=== PATIENT | female | born 1980 | race Asian ===

== ENCOUNTER 2017-06-15 08:14 | Emergency (ER) | payer MEDICAID ==
[~2017-06-15] VITALS: Ht 175.3 cm; Wt 111.4 kg
[2017-06-15] MEDS ORDERED: FERR325T6 PO (08:56)
[2017-06-15] MEDS ORDERED: ACETAMINOPHEN 500MG TABLET PO ONE (09:45)
[2017-06-15 12:57] VITALS: BP 110/67
== END 2017-06-15 12:59 | disposition home or self-care (01) ==
LOC: ER 08:28
DX: J06.9 Acute upper respiratory infection, unspecified (principal)
CPT/HCPCS: 87804; 99284

== ENCOUNTER 2019-02-07 16:25 | Emergency (ER) | payer SELFPAY ==
[~2019-02-07] VITALS: Ht 175.3 cm; Wt 100.0 kg
[~2019-02-07 16:25] MED LIST: FERR325T6 PO
[2019-02-07 17:28] VITALS: BP 116/65
== END 2019-02-07 18:21 | disposition home or self-care (01) ==
LOC: ER 16:25
DX: J40 Bronchitis, not specified as acute or chronic (principal); D64.9 Anemia, unspecified
CPT/HCPCS: 81025; 99283

== ENCOUNTER 2019-06-05 21:55 | Inpatient (IN) | payer MEDICAID ==
[~2019-06-05] VITALS: Ht 175.3 cm; Wt 115.2 kg
[2019-06-05] MEDS ORDERED: SODIUM CHLORIDE 0.9% 1,000 ML IV ONE (22:46)
[2019-06-05 23:02] LABS: BASOPHILS % 0.5 % (0.0-2.0); EOSINOPHILS % 3.3 % (0.0-5.0); LYMPHOCYTES % 29.2 % (20.0-50.0); MEAN CORPUSCULAR HEMOGLOBIN 15.8 pg (28.0-32.0); MEAN CORPUSCULAR VOLUME 57.5 fL (81.0-99.0); MEAN PLATELET VOLUME 8.3 fl (7.4-10.4); PLATELET 383 x1000/uL (130-400); RED BLOOD CELL COUNT 3.51 mill/uL (4.2-5.4); RED CELL DISTRIBUTION WIDTH 21.9 % (11.6-14.6)
[2019-06-05 23:08] LABS: HEMATOCRIT. 20.2 % (36.0-48.0); HEMOGLOBIN. 5.6 g/dL (12.0-16.0); PROTHROMBIN TIME 10.8 sec (9.6-11.0)
[2019-06-05 23:09] LABS: CHLORIDE 109 mEq/L (98-107)
[2019-06-05 23:16] LABS: HCG SCREEN NEGATIVE
[2019-06-05 23:18] LABS: PLATELET ESTIMATE NORMAL
[2019-06-06] MEDS: SODIUM CHLORIDE 0.9% 1,000 ML IV SCH ×3 (01:57→23:05)
[2019-06-06] MEDS ORDERED: ACETAMINOPHEN 325MG TABLET PO PRN (02:00)
[2019-06-06] MEDS ORDERED: ONDANSETRON HCL 4MG/2ML INJ IV PRN (02:00)
[2019-06-06 05:27] LABS: MEAN CORPUSCULAR VOLUME 58.9 fL (81.0-99.0); PLATELET 343 x1000/uL (130-400); RED BLOOD CELL COUNT 3.53 mill/uL (4.2-5.4); RED CELL DISTRIBUTION WIDTH 21.8 % (11.6-14.6)
[2019-06-06 05:35] LABS: CHLORIDE 111 mEq/L (98-107)
[2019-06-06 05:37] LABS: HEMATOCRIT 20.8 % (36.0-48.0)
[2019-06-06 09:49] LABS: BASOPHILS % 0.7 % (0.0-2.0); EOSINOPHILS % 3.8 % (0.0-5.0); HEMATOCRIT. 25.7 % (36.0-48.0); HEMOGLOBIN. 7.5 g/dL (12.0-16.0); LYMPHOCYTES % 24.3 % (20.0-50.0); MEAN CORPUSCULAR HEMOGLOBIN 18.2 pg (28.0-32.0); MEAN CORPUSCULAR VOLUME 62.3 fL (81.0-99.0); MEAN PLATELET VOLUME 8.4 fl (7.4-10.4); MONOCYTES % 7.5 % (2.0-8.0); NEUTROPHILS % 63.7 % (40.0-76.0); PLATELET 348 x1000/uL (130-400); RED BLOOD CELL COUNT 4.13 mill/uL (4.2-5.4); RED CELL DISTRIBUTION WIDTH 24.4 % (11.6-14.6)
[2019-06-06 09:58] LABS: PROTHROMBIN TIME 10.8 sec (9.6-11.0)
[2019-06-06] MEDS ORDERED: FERROUS SULFATE 325MG TABLET PO NR (10:30)
[2019-06-06] MEDS: FERROUS SULFATE 325MG TABLET PO SCH ×2 (14:30→18:19)
[2019-06-06 16:45] VITALS: BP 107/58
[2019-06-06 19:14] LABS: HEMATOCRIT 24.6 % (36.0-48.0); HEMOGLOBIN 7.2 g/dL (12.0-16.0); MEAN CORPUSCULAR HEMOGLOBIN 18.1 pg (28.0-32.0); MEAN CORPUSCULAR VOLUME 61.8 fL (81.0-99.0); PLATELET 382 x1000/uL (130-400); RED BLOOD CELL COUNT 3.99 mill/uL (4.2-5.4); RED CELL DISTRIBUTION WIDTH 24.5 % (11.6-14.6)
[2019-06-07] VITALS (13 sets, daily range): BP systolic 96–119; BP diastolic 49–72
[2019-06-07 07:09] LABS: BASOPHILS % 1.1 % (0.0-2.0); EOSINOPHILS % 3.4 % (0.0-5.0); HEMATOCRIT. 23.1 % (36.0-48.0); LYMPHOCYTES % 36.1 % (20.0-50.0); MEAN CORPUSCULAR HEMOGLOBIN 17.9 pg (28.0-32.0); MEAN CORPUSCULAR VOLUME 62.1 fL (81.0-99.0); MEAN PLATELET VOLUME 8.4 fl (7.4-10.4); MONOCYTES % 7.4 % (2.0-8.0); PLATELET 347 x1000/uL (130-400); RED BLOOD CELL COUNT 3.72 mill/uL (4.2-5.4); RED CELL DISTRIBUTION WIDTH 24.7 % (11.6-14.6)
[2019-06-07 07:12] LABS: CHLORIDE 112 mEq/L (98-107)
[2019-06-07 08:02] LABS: HEMOGLOBIN. 6.7 g/dL (12.0-16.0)
[2019-06-07] MEDS: FERROUS SULFATE 325MG TABLET PO SCH ×3 (10:23→19:07)
[2019-06-08] VITALS: BP 100/63
[2019-06-08 00:42] LABS: HEMATOCRIT 28.3 % (36.0-48.0); HEMOGLOBIN 8.5 g/dL (12.0-16.0); MEAN CORPUSCULAR HEMOGLOBIN 19.8 pg (28.0-32.0); MEAN CORPUSCULAR VOLUME 66.2 fL (81.0-99.0); PLATELET 318 x1000/uL (130-400); RED BLOOD CELL COUNT 4.27 mill/uL (4.2-5.4); RED CELL DISTRIBUTION WIDTH 28.9 % (11.6-14.6)
[2019-06-08 04:00] VITALS: BP 113/54
[2019-06-08] MEDS: SODIUM CHLORIDE 0.9% 1,000 ML IV SCH (04:18)
[2019-06-08 08:00] VITALS: BP 120/66
[2019-06-08] MEDS: FERROUS SULFATE 325MG TABLET PO SCH ×2 (08:10→13:01)
[2019-06-08 12:00] VITALS: BP 128/77
[2019-06-08] MEDS ORDERED: FERR325T23 PO (12:08)
[2019-06-08 13:06] VITALS: BP 128/77
== END 2019-06-08 16:04 | disposition home or self-care (01) | DRG 532 ==
LOC: ER 21:55 → 7WST 06-06 01:31 → EDBEDREQ 06-06 01:35 → EDBEDREQDT 06-06 07:46 → EDBEDREQSVC 06-06 07:46 → EDBEDREQTM 06-06 07:46 → EDBEDREQ 06-06 07:46 → CANRESERV 06-06 11:46 → ENRESERV 06-06 11:46 → EDBEDREQ 06-06 12:53 → ENRESERV 06-06 14:02
PROVIDERS: ADMIT Family Medicine Adult Medicine; ATTEND Family Medicine Adult Medicine
PROC: 30233N1 Transfusion of Nonautologous Red Blood Cells into Peripheral Vein, Percutaneous Approach (ICD-10-PCS; principal; 2019-06-06)
DX: N93.8 Other specified abnormal uterine and vaginal bleeding (principal); D62 Acute posthemorrhagic anemia; D25.9 Leiomyoma of uterus, unspecified; N92.4 Excessive bleeding in the premenopausal period; N92.0 Excessive and frequent menstruation with regular cycle; Z82.49 Family history of ischemic heart disease and other diseases of the circulatory system; Z79.899 Other long term (current) drug therapy; Z68.37 Body mass index [BMI] 37.0-37.9, adult
CPT/HCPCS: 36415; 71045; 76830; 76856; 80048; 80053; 83735; 84703; 85025; 85027; 85384; 86850; 86900; 86920; 93005; 99285; J2405; J7030; P9016